=== PATIENT | female | born 1965 | race Caucasian/White ===

== ENCOUNTER 2016-06-03 09:06 | Day surgery (SDC) | payer OTHER ==
[2016-06-01 16:21] LABS: HEMOGLOBIN 13.6 g/dL (11.7-16.4)
[2016-06-01 16:24] LABS: BLOOD UREA NITROGEN 11 mg/dL (7-18)
[2016-06-01 16:32] LABS: ASPARTATE AMINO TRANSFERASE 18 U/L (15-37)
[~2016-06-03] VITALS: Ht 172.7 cm; Wt 59.1 kg
[~2016-06-03 09:06] MED LIST: BUPIVACAINE/PF-EPI 0.5% 1:200K ONE; FLUO20TA25 PO; PROBIOTIC PO; VITAMIN B PO
[2016-06-03] MEDS ORDERED: LACTATED RINGERS 1,000 ML IV SCH (09:26)
[2016-06-03] MEDS ORDERED: KIRKLAND SLEEP AID PO (09:28)
[2016-06-03 09:29] VITALS: BP 102/69
[2016-06-03] MEDS ORDERED: LABETALOL 5MG/ML, 20ML IV PRN (09:30)
[2016-06-03] MEDS ORDERED: ONDANSETRON 2MG/ML, 2ML IVPush PRN (09:30)
[2016-06-03] MEDS ORDERED: FENTANYL PF 100 MCG/2ML IV PRN (09:30)
[2016-06-03] MEDS ORDERED: HYDROmorphone 1 MG/ML, 1ML IV PRN (09:30)
[2016-06-03] MEDS ORDERED: OXYcodone 5 MG/5 ML ORAL.SOL UDC PO PRN (09:30)
[2016-06-03] MEDS ORDERED: PROMETHAZINE 25 MG/ML, 1ML IV PRN (09:30)
[2016-06-03] MEDS ORDERED: hydrALAzine 20 MG/ML, 1ML IV PRN (09:30)
[2016-06-03] MEDS ORDERED: ACETAMINOPHEN 325 MG TABLET PO PRN (09:30)
[2016-06-03] MEDS ORDERED: MEPERIDINE/PF 25MG/0.5ML IVPush PRN (09:30)
[2016-06-03] MEDS ORDERED: FENTANYL PF 250 MCG/5ML ONE (09:31)
[2016-06-03] MEDS ORDERED: MIDAZOLAM 1 MG/ML, 2ML ONE (09:31)
[2016-06-03] MEDS ORDERED: CEFAZOLIN 1,000 MG ONE (10:35)
[2016-06-03] MEDS ORDERED: PHENYLEPHRINE 10 MG/ML ONE (10:35)
[2016-06-03] MEDS ORDERED: DEXAMETHASONE 4 MG/ML, 1ML ONE (10:35)
[2016-06-03] MEDS ORDERED: KETOROLAC 30 MG/1 ML ONE (10:35)
[2016-06-03] MEDS ORDERED: ROCURONIUM 10 MG/ML ONE (10:35)
[2016-06-03] MEDS ORDERED: PROPOFOL 10 MG/ML, 20ML ONE (10:35)
[2016-06-03] MEDS ORDERED: ONDANSETRON 2MG/ML, 2ML ONE (10:35)
[2016-06-03] MEDS ORDERED: METOCLOPRAMIDE 5 MG/ML, 2ML ONE (10:35)
[2016-06-03] MEDS ORDERED: ACETAMINOPHEN 325 MG TABLET ONE (11:57)
[2016-06-03] MEDS ORDERED: ACETAMINOPHEN 650 MG/20.3 ML UDC ONE (11:57)
== END 2016-06-03 14:00 | disposition home or self-care (01) ==
LOC: OUT 09:06
PROVIDERS: ATTEND Surgery
DX: K43.9 Ventral hernia without obstruction or gangrene (principal); Z82.49 Family history of ischemic heart disease and other diseases of the circulatory system; Z83.49 Family history of other endocrine, nutritional and metabolic diseases; Z72.89 Other problems related to lifestyle; Z87.891 Personal history of nicotine dependence
CPT/HCPCS: 36415; 49560; 49568; 80053; 84703; 85025; 85610; 93005; J0690; J1100; J1885; J2250; J2370; J2405; J2704; J2765; J3010; J7120; C1781

== ENCOUNTER 2019-02-02 10:20 | Outpatient (CLI) | payer OTHER ==
[~2019-02-02 10:20] MED LIST changes: -BUPIVACAINE/PF-EPI 0.5% 1:200K ONE; +KIRKLAND SLEEP AID PO
== END 2019-02-02 23:59 | disposition home or self-care (01) ==
LOC: CFH 10:20
PROVIDERS: ATTEND Family Medicine
DX: Z12.31 Encounter for screening mammogram for malignant neoplasm of breast (principal)
CPT/HCPCS: 77063; 77067

== ENCOUNTER 2019-04-19 07:15 | Outpatient (CLI) | payer OTHER | END 2019-04-19 23:59 | disposition home or self-care (01) | LOC: CFH 07:15 | PROVIDERS: ATTEND Family Medicine | DX: N60.02 Solitary cyst of left breast (principal) | CPT/HCPCS: 76641 ==